=== PATIENT | male | born 1965 | race Caucasian/White ===

== ENCOUNTER 2016-08-18 22:28 | Emergency (ER) | payer BC ==
[2016-08-18 22:38] VITALS: BP 143/105
--- NOTE | 2016-08-18 22:41 | EDM.PDOC ---
ED HPI GENERAL MEDICAL PROBLEM - General Chief Complaint: Head Injury Stated Complaint: FELL AND HIT HEAD Time Seen by Provider: 08/18/16 22:31 Source of Information: Reports: Patient, EMS Notes Reviewed, RN, RN Notes Reviewed History Limitations: Reports: Intoxication - History of Present Illness INITIAL COMMENTS - FREE TEXT/NARRATIVE: Patient is brought to the emergency room at [facility] via ambulance after he slipped and fell hitting his head on the right for head. According to bystanders, the patient did not lose any consciousness. The bystanders called the ambulance. The patient admits to drinking at least 12 beers. The patient also injured his right hand. He does complain of right hand pain. The patient is a poor historian due to his intoxication. Most of the history is obtained from the EMS crew. The patient does not have any significant medical history. Onset: Today Onset Date: 08/18/16 Onset Time: 22:10 - Related Data Allergies Allergy/AdvReac Type Severity Reaction Status Date / Time No Known Allergies Allergy Verified 08/18/16 22:36 Home Meds: Home Meds . [No Known Home Meds] 08/18/16 [History] ED ROS GENERAL - Review of Systems Review Of Systems: ROS reveals no pertinent complaints other than HPI. (patient is significantly intoxicated. Information is unreliable from patient) ED EXAM, HEAD INJURY - Physical Exam Exam: See Below Exam Limited By: Intoxication General Appearance: Alert, No Apparent Distress Head: Facial Ecchymosis, Facial Swelling, Facial Tenderness, Other (swelling of the right orbit; hematoma above right eye; lid swelling and shut; right periorbital hematoma present) Eyes: Bilateral Eye: PERRL Ears: Normal External Exam, Normal Canal, Normal TMs Nose: Normal Inspection, Normal Mucousa, No Blood Throat/Mouth: Normal Inspection, Normal Oropharynx, No Airway Compromise Neck: Non-Tender, Full Range of Motion Respiratory: No Respiratory Distress, Lungs Clear, Normal Breath Sounds Cardiovascular: Normal Peripheral Pulses, Regular Rate, Rhythm Extremities: Bony-Point Tenderness (right 4th and 5th digit right hand), Pain with Movement Neurologic: Alert, Other (significantly intoxicated) Skin: Normal Color, Warm/Dry - Hari Coma Score Best Eye Response ([place]): (4) Open Spontaneously Best Verbal Response (Hari): (4) Confused Conversation Best Motor Response (Hari): (6) Obeys Commands Hari Total: 14 ED LACERATION/WOUND & ERIN PROC - Splinting Right Upper Extremity Pre-procedure NV status: normal Post-procedure NV status: normal Splint material: fiberglass Splint design: gutter Applied & form fitted by: provider Provider post-splint application NV check: NV status normal, good position Complications: No Course - Vital Signs Last Recorded V/S: Last Vital Signs Temp 35.4 C 08/18/16 22:37 Pulse 102 H 08/18/16 22:37 Resp 18 08/18/16 22:37 BP 143/105 H 08/18/16 22:37 Pulse Ox 96 08/18/16 22:37 - Orders/Labs/Meds Orders: Active Orders 24 hr Category Date Time Status Fingers Fifth Digit Rt F9 [CR] Stat Exams 08/18/16 22:42 Taken Head wo Cont [CT] Stat Exams 08/18/16 22:42 Taken Labs: Laboratory Tests 08/18/16 08/18/16 Range/Units 22:55 22:55 WBC 7.7 (4.0-10.0) x10^3/uL RBC 4.25 L (4.5-6.0) x10^6/uL Hgb 13.6 L (14.0-18.0) g/dL Hct 39.3 L (40.0-52.0) % MCV 92.5 (78.0-93.0) fL MCH 32.0 (26.0-32.0) pg MCHC 34.6 (32.0-36.0) g/dL RDW Coeff of Jc 12.3 (10.0-15.0) % Plt Count 240 (130-400) x10^3/uL Neut % (Auto) 66.2 (50.0-80.0) % Lymph % (Auto) 23.8 L (25.0-50.0) % [place] % (Auto) 9.0 (2.0-11.0) % Eos % (Auto) 0.7 (0.0-4.0) % Baso % (Auto) 0.3 (0.2-1.2) % Sodium 135 L (136-145) mmol/L Potassium 3.5 (3.5-5.1) mmol/L Chloride 98 (98-107) mmol/L Carbon Dioxide 26 (21-32) mmol/L BUN 8 (7-18) mg/dL Creatinine 0.8 (0.70-1.30) mg/dL Est Cr Clr Drug Dosing 105.13 mL/min Estimated GFR (MDRD) > 60 Glucose 107 H (74-106) mg/dL Calcium 8.2 L (8.5-10.1) mg/dL Ethyl Alcohol 330 H* (0-3) mg/dL - Radiology Interpretation Free Text/Narrative:: See scanned documents in patient's EMR for reports CT Results Date: 08/18/16 CT Results Time: 23:12 Departure - Departure Time of Disposition: 23:40 Disposition: Home, Self-Care 01 Condition: fair Clinical Impression: Periorbital hematoma of right eye Fracture of proximal phalanx of digit of right hand Qualifiers: Encounter type: initial encounter Fracture type: open Qualified Code(s): S62.619B - Displaced fracture of proximal phalanx of unspecified finger, initial encounter for open fracture Closed head injury without loss of consciousness Qualifiers: Encounter type: initial encounter Qualified Code(s): S09.90XA - Unspecified injury of head, initial encounter Alcohol intoxication Qualifiers: Complication of substance-induced condition: uncomplicated Qualified Code(s): F10.920 - Alcohol use, unspecified with intoxication, uncomplicated Fall Qualifiers: Encounter type: initial encounter Qualified Code(s): W19.XXXA - Unspecified fall, initial encounter - Discharge Information Instructions: Head Injury, Adult, [id number], Hematoma, [id number], Finger Fracture Referrals: PCP,None [Primary Care Provider] - Forms: ED Department Discharge Additional Instructions: 1. Stay well hydrated and rest 2. May take Advil/Tylenol for pain 3. You NEED to make a follow up appointment with a provider this Friday 4. DO NOT remove splint; do not move right fingers 5. Call with any questions - Problem List Review Problem List Initiated/Reviewed/Updated: Yes - My Orders Last 24 Hours: My Active Orders 08/18/16 22:42 Fingers Fifth Digit Rt F9 [CR] Stat Head wo Cont [CT] Stat - Assessment/Plan Last 24 Hours: My Active Orders 08/18/16 22:42 Fingers Fifth Digit Rt F9 [CR] Stat Head wo Cont [CT] Stat Plan: Thoroughly and extensively discussed with patient and his about follow up for the fractures. Recommend seeing a provider this Friday to decide if patient needs to see a hand specialist. Discussed not to use the right hand until seen by PCP. Unable to assess comprehension of information by patient due to intoxication.
[2016-08-18 23:26] LABS: CHLORIDE,CL 98 mmol/L (98-107); SODIUM,NA 135 mmol/L (136-145)
== END 2016-08-18 23:55 | disposition home or self-care (01) ==
LOC: SUPCPDRO 22:28 → VM.ED 22:28
DX: S09.90XA Unspecified injury of head, initial encounter (principal); S62.619B Displaced fracture of proximal phalanx of unspecified finger, initial encounter for open fracture; H57.8 Other specified disorders of eye and adnexa; F10.920 Alcohol use, unspecified with intoxication, uncomplicated; W19.XXXA Unspecified fall, initial encounter
CPT/HCPCS: 29125; 36415; 70450; 73140; 80048; 85025; 99285; G0480